=== PATIENT | female | born 1940 | race Caucasian/White ===

== ENCOUNTER 2018-12-29 15:01 | Inpatient (IN) | payer MEDICARE, OTHER ==
[~2018-12-29] VITALS: Ht 165.1 cm; Wt 84.9 kg
[2018-12-29 15:39] LABS: BASOPHILS ABSOLUTE AUTO 0.05 K/mm3 (0.00-0.23); BASOPHILS PERCENT AUTO 0 % (0-2); EOSINOPHILS ABSOLUTE AUTO 0.04 K/mm3 (0.00-0.68); EOSINOPHILS PERCENT AUTO 0 % (0-6); Hematocrit 45.1 % (33.0-51.0); Hemoglobin 15.2 g/dL (11.5-16.0); IMMATURE GRAN ABSOLUTE AUTO 0.18 K/mm3 (0.00-0.10); IMMATURE GRAN PERCENT AUTO 1 % (0-1); LYMPHOCYTES ABSOLUTE AUTO 1.48 K/mm3 (0.84-5.20); LYMPHOCYTES PERCENT AUTO 8 % (21-46); MONOCYTES ABSOLUTE AUTO 0.97 K/mm3 (0.16-1.47); MONOCYTES PERCENT AUTO 6 % (4-13); Mean Corpuscular HGB 30.5 pg (26.0-34.0); Mean Corpuscular HGB Conc 33.7 g/dL (31.5-36.5); Mean Corpuscular Volume 91 fL (80-100); Mean Platelet Volume 10.5 fL (9.1-12.4); NEUTROPHILS PERCENT AUTO 85 % (41-73); Platelet Count 250 K/mm3 (150-400); RDW Coefficient Variation 12.6 % (11.7-14.2); Red Blood Cell Count 4.98 M/mm3 (3.80-5.20); White Blood Cell Count 17.72 K/mm3 (4.00-11.30)
[2018-12-29 15:59] LABS: Alanine Aminotransfer (ALT/SGP 196 U/L (12-78); Albumin, Blood 2.9 g/dL (3.4-5.0); Albumin/Globulin Ratio 0.6 (0.8-1.8); Alk Phos 263 U/L (50-136); Amylase, Blood 326 U/L (25-115); Anion Gap 9 mmol/L (6-16); Aspartate Aminotrans (AST/SGOT 240 U/L (12-37); Blood Urea Nitrogen 16 mg/dL (8-24); Bun/Creatinine Ratio 21.6 (12.0-20.0); CO2, Blood 24 mmol/L (21-32); Calcium, Blood 9.6 mg/dL (8.5-10.1); Chloride, Blood 103 mmol/L (98-108); Creatinine, Blood 0.74 mg/dL (0.40-1.00); Globulin, Blood 4.5 g/dL (2.2-4.0); Glomerular Filtration Rate >60 (60-); Glucose, Blood 149 mg/dL (70-99); Potassium, Blood 3.7 mmol/L (3.5-5.5); Sodium, Blood 136 mmol/L (136-145); Total Protein, Blood 7.4 g/dL (6.4-8.2)
[2018-12-29] MEDS ORDERED: LANS30EC PO (18:32)
[2018-12-29] MEDS ORDERED: NAPR500 PO (21:00)
[2018-12-29] MEDS ORDERED: RED YEAST RICE600 MG PO (21:01)
[2018-12-29] MEDS ORDERED: Zyrtec10 MG PO (21:01)
[2018-12-30 05:06] LABS: BASOPHILS ABSOLUTE AUTO 0.03 K/mm3 (0.00-0.23); BASOPHILS PERCENT AUTO 0 % (0-2); EOSINOPHILS ABSOLUTE AUTO 0.02 K/mm3 (0.00-0.68); EOSINOPHILS PERCENT AUTO 0 % (0-6); Hemoglobin 13.2 g/dL (11.5-16.0); IMMATURE GRAN ABSOLUTE AUTO 0.16 K/mm3 (0.00-0.10); IMMATURE GRAN PERCENT AUTO 2 % (0-1); LYMPHOCYTES ABSOLUTE AUTO 0.41 K/mm3 (0.84-5.20); LYMPHOCYTES PERCENT AUTO 5 % (21-46); MONOCYTES ABSOLUTE AUTO 0.09 K/mm3 (0.16-1.47); MONOCYTES PERCENT AUTO 1 % (4-13); Mean Corpuscular HGB 30.4 pg (26.0-34.0); Mean Corpuscular Volume 92 fL (80-100); Mean Platelet Volume 10.3 fL (9.1-12.4); NEUTROPHILS ABSOLUTE AUTO 7.59 K/mm3 (1.96-9.15); NEUTROPHILS PERCENT AUTO 92 % (41-73); Platelet Count 192 K/mm3 (150-400); RDW Coefficient Variation 12.9 % (11.7-14.2); RDW Standard Deviation 43.6 fL (35.1-46.3); Red Blood Cell Count 4.34 M/mm3 (3.80-5.20)
[2018-12-30 05:27] LABS: BAND PERCENT MAN 24 % (0-8); BASOPHILS PERCENT MAN 0 % (0-2); EOSINOPHILS PERCENT MAN 0 % (0-6); LYMPHOCYTES ABSOLUTE MAN 0.58 K/mm3 (0.84-5.20); LYMPHOCYTES PERCENT MAN 7 % (21-46); METAMYELOCYTE ABSOLUTE MAN 0.16 K/mm3 (0.00-0.00); METAMYELOCYTE PERCENT MAN 2 % (0-0); MONOCYTES ABSOLUTE MAN 0.33 K/mm3 (0.16-1.47); MONOCYTES PERCENT MAN 4 % (4-13); NEUTROPHILS ABSOLUTE MAN 7.22 K/mm3 (1.96-9.15); SEG NEUTROPHILS PERCENT MAN 63 % (41-73); TOTAL CELLS COUNTED 100
[2018-12-30 05:31] LABS: Alanine Aminotransfer (ALT/SGP 156 U/L (12-78); Albumin, Blood 2.4 g/dL (3.4-5.0); Albumin/Globulin Ratio 0.6 (0.8-1.8); Alk Phos 305 U/L (50-136); Anion Gap 7 mmol/L (6-16); Aspartate Aminotrans (AST/SGOT 186 U/L (12-37); Bilirubin, Total 6.4 mg/dL (0.1-1.0); Blood Urea Nitrogen 14 mg/dL (8-24); Bun/Creatinine Ratio 22.5 (12.0-20.0); CO2, Blood 24 mmol/L (21-32); Calcium, Blood 8.5 mg/dL (8.5-10.1); Chloride, Blood 108 mmol/L (98-108); Creatinine, Blood 0.62 mg/dL (0.40-1.00); Globulin, Blood 3.7 g/dL (2.2-4.0); Glomerular Filtration Rate >60 (60-); Glucose, Blood 97 mg/dL (70-99); Potassium, Blood 3.7 mmol/L (3.5-5.5); Sodium, Blood 139 mmol/L (136-145); Total Protein, Blood 6.1 g/dL (6.4-8.2)
--- NOTE | 2018-12-30 18:02 | NUR ---
PATIENT TO DISCHARGE TO [facility] FOR SURGERY . THIS NURSE CALLED AND GAVE REPORT TO [facility] TO TRANSPORT. PT ALERT AND ORIENTED.
== END 2018-12-30 16:38 | disposition short-term general hospital (02) | DRG 871 ==
LOC: ER 15:01 → CT 15:01 → MEDS 21:06
PROVIDERS: Nurse Practitioner Acute Care; ADMIT Internal Medicine
DX: A41.9 Sepsis, unspecified organism (principal); K85.10 Biliary acute pancreatitis without necrosis or infection; K80.42 Calculus of bile duct with acute cholecystitis without obstruction; K21.9 Gastro-esophageal reflux disease without esophagitis; Z87.891 Personal history of nicotine dependence; Z66 Do not resuscitate
CPT/HCPCS: 36415; 74176; 74181; 76705; 80053; 82150; 82947; 83605; 83690; 85025; 93005; 93010; 96361; 96365; 96375; 97161; 97530; 99285-25; J0696; J1170; J2405; J2543; J3010; J7030

== ENCOUNTER → 2021-07-23 | Outpatient (CLI) | payer MEDICARE, OTHER ==
[~2021-07-23] MED LIST: LANS30EC PO; NAPR500 PO; RED YEAST RICE600 MG PO; Zyrtec10 MG PO
== END | disposition home or self-care (01) ==
LOC: LAB SHORT 14:27 → PLD 14:27
DX: C44.319 Basal cell carcinoma of skin of other parts of face (principal)
CPT/HCPCS: 88305

== ENCOUNTER 2024-01-22 10:23 | Inpatient (IN) | payer MEDICARE, OTHER ==
[~2024-01-22] VITALS: Ht 162.6 cm; Wt 49.9 kg
[2024-01-22 10:38] LABS: BASOPHILS ABSOLUTE AUTO 0.02 K/mm3 (0.00-0.23); BASOPHILS PERCENT AUTO 0 % (0-2); EOSINOPHILS ABSOLUTE AUTO 0.01 K/mm3 (0.00-0.68); EOSINOPHILS PERCENT AUTO 0 % (0-6); Hematocrit 41.9 % (33.0-51.0); Hemoglobin 13.4 g/dL (11.5-16.0); IMMATURE GRAN ABSOLUTE AUTO 0.08 K/mm3 (0.00-0.10); IMMATURE GRAN PERCENT AUTO 1 % (0-1); LYMPHOCYTES ABSOLUTE AUTO 1.09 K/mm3 (0.84-5.20); LYMPHOCYTES PERCENT AUTO 8 % (21-46); MONOCYTES ABSOLUTE AUTO 0.76 K/mm3 (0.16-1.47); MONOCYTES PERCENT AUTO 5 % (4-13); Mean Corpuscular HGB 26.9 pg (26.0-34.0); Mean Corpuscular Volume 84 fL (80-100); Mean Platelet Volume 8.8 fL (9.1-12.4); NEUTROPHILS PERCENT AUTO 86 % (41-73); Platelet Count 476 K/mm3 (150-400); RDW Coefficient Variation 14.3 % (11.7-14.2); RDW Standard Deviation 43.8 fL (35.1-46.3); Red Blood Cell Count 4.98 M/mm3 (3.80-5.20); White Blood Cell Count 14.46 K/mm3 (4.00-11.30)
[2024-01-22] MEDS ORDERED: NS 1,000 ML IV SCH (10:40)
[2024-01-22 11:02] LABS: Albumin, Blood 2.2 g/dL (3.4-5.0); Albumin/Globulin Ratio 0.5 (0.8-1.8); Bilirubin, Total 0.9 mg/dL (0.1-1.0); Bun/Creatinine Ratio 43.5 (12.0-20.0); Calcium, Blood 9.5 mg/dL (8.5-10.1); Creatinine, Blood 0.6 mg/dL (0.40-1.00); Globulin, Blood 4.8 g/dL (2.2-4.0); Potassium, Blood 3.6 mmol/L (3.5-5.5)
[2024-01-22] MEDS ORDERED: Diltiazem HCl 5 MG / ML 5ML Vial IV ONE (11:25)
[2024-01-22] MEDS ORDERED: FLU VACC TS2024-25(6MOS UP)/PF 45 MCG/0.5 ML SYRINGE IM SCH (14:55)
[2024-01-22] MEDS ORDERED: Metoprolol Tartrate 1 MG/ML 5 ML VIAL IV PRN (15:00)
[2024-01-22] MEDS ORDERED: Metoprolol Tartrate 1 MG/ML 5 ML VIAL IV ONE (15:00)
[2024-01-22] MEDS ORDERED: NS 1,000 ML IV ONE (15:00)
[2024-01-22] MEDS ORDERED: Digoxin 0.25 MG Tab PO SCH (16:00)
[2024-01-22 17:28] VITALS: BP 106/63
[2024-01-22] MEDS ORDERED: Digoxin 0.25 MG in Dextrose 5% 100 ML IV ONE (19:10)
[2024-01-22 19:41] VITALS: BP 106/62
[2024-01-22] MEDS ORDERED: GuaiFENesin 600 MG TabCR PO SCH (20:00)
--- NOTE | 2024-01-22 20:12 | NUR ---
RESIDENT DR VALENTE CALLED TO CLARIFY ORDER FOR DIGOXIN PLACED ON DAY SHIFT JUST PRIOR TO SHIFT CHANGE. DR VALENTE PLACED ORDER FOR IV DIGOXIN AND REMINDED IV DIGOXIN IS NOT GIVEN ON MEDICAL FLOOR. TELEMETRY CALLED AND PATIENT NOW NSR [address] VALENTE REPORTS TO HOLD IV DIGOXIN AND TO GIVE SCHEDULE PO DIGOXIN 0.25 MG AT 22:00. ALSO IF HR INCREASES DR VALENTE REPORTS MIGHT HAVE TO TRANSFER PATIET TO PCU. WCTM.
[2024-01-23] VITALS (10 sets, daily range): BP systolic 95–142; BP diastolic 43–104
--- NOTE | 2024-01-23 04:08 | NUR ---
SHIFT SUMMARY PATIENT HR AFIB 87-120 PER TELE MONITOR. AXOX 3 AND BEDREST. DENIES CHEST PAIN, SOB, AND N/V. AFEBRILE. PIV INTACT. PUREWICK IN PLACE. WOUND PHOTO TAKEN ON BUTTOCK AND CONSENT TO PHOTOGRAPH SIGNED AND IN CHART. PATIENT SLEPT MOST OF THE SHIFT. COOPERATIVE WITH CARE. CALL LIGHT IN REACH. BED IN LOWEST POSITION. WILL CONTINUE TO MONITOR UNTIL DAY SHIFT NURSE ASSUMES CARE.
[2024-01-23 05:12] LABS: Source, Urine Straight Cath
[2024-01-23 05:15] LABS: Appearance, Urine Cloudy (Clear); Bilirubin, Urine Neg (Neg); Blood, Urine 4+ (Neg); Color, Urine Amber (P-Yellow); Glucose Qualitative, Urine Neg (Neg); Ketones, Urine 1+ (Neg); Leukocyte Esterase, Urine 3+ (Neg); Nitrite, Urine Pos (Neg); Protein, Urine 2+ (Neg); Urobilinogen, Urine 2+ (Normal)
[2024-01-23 05:29] LABS: Bacteria Many /hpf; Squamous Epithelial Cells Mod /hpf (Few); White Blood Cells, Urine 25-50 /hpf (0-5)
[2024-01-23 05:31] LABS: Amorphous Heavy (0-Heavy)
[2024-01-23 05:32] LABS: Transitional Epithelial Cells Rare /hpf (0-Rare); Yeast/Fungi Urine Rare /hpf
--- NOTE | 2024-01-23 06:47 | NUR ---
[facility] GENER[facility] REPORTS SVT 150 AND BACK DOWN TO 120. NOW AFIB 94-105. TM.
[2024-01-23 07:44] LABS: BASOPHILS ABSOLUTE AUTO 0.02 K/mm3 (0.00-0.23); BASOPHILS PERCENT AUTO 0 % (0-2); EOSINOPHILS ABSOLUTE AUTO 0.02 K/mm3 (0.00-0.68); EOSINOPHILS PERCENT AUTO 0 % (0-6); Hematocrit 35.7 % (33.0-51.0); Hemoglobin 11.1 g/dL (11.5-16.0); IMMATURE GRAN ABSOLUTE AUTO 0.11 K/mm3 (0.00-0.10); IMMATURE GRAN PERCENT AUTO 1 % (0-1); LYMPHOCYTES ABSOLUTE AUTO 1.23 K/mm3 (0.84-5.20); LYMPHOCYTES PERCENT AUTO 9 % (21-46); MONOCYTES ABSOLUTE AUTO 0.82 K/mm3 (0.16-1.47); MONOCYTES PERCENT AUTO 6 % (4-13); Mean Corpuscular HGB 26.6 pg (26.0-34.0); Mean Corpuscular HGB Conc 31.1 g/dL (31.5-36.5); Mean Corpuscular Volume 85 fL (80-100); Mean Platelet Volume 9.3 fL (9.1-12.4); NEUTROPHILS ABSOLUTE AUTO 11.54 K/mm3 (1.96-9.15); NEUTROPHILS PERCENT AUTO 84 % (41-73); Platelet Count 421 K/mm3 (150-400); RDW Coefficient Variation 14.3 % (11.7-14.2); RDW Standard Deviation 44.3 fL (35.1-46.3); Red Blood Cell Count 4.18 M/mm3 (3.80-5.20); White Blood Cell Count 13.74 K/mm3 (4.00-11.30)
[2024-01-23 08:02] LABS: Bun/Creatinine Ratio 30.3 (12.0-20.0); Calcium, Blood 8.7 mg/dL (8.5-10.1); Creatinine, Blood 0.5 mg/dL (0.40-1.00)
[2024-01-23] MEDS ORDERED: Enoxaparin 40 MG/0.4 ML SYR SC SCH (09:00)
[2024-01-23] MEDS ORDERED: NS 1,000 ML IV SCH (09:25)
[2024-01-23] MEDS ORDERED: Potassium Chloride 10 Meq Tablet SA PO SCH (09:30)
[2024-01-23] MEDS ORDERED: NS 250 ML IV PRN (10:00)
[2024-01-23] MEDS ORDERED: CefTRIAXone Sodium 1,000 MG in NS 100 ML IV SCH (10:00)
[2024-01-23] MEDS ORDERED: Lactobacil 2-S.Thermo-Bifido 1 1 Cap PO SCH (10:00)
[2024-01-23] MEDS ORDERED: Digoxin 0.25 MG Tab PO SCH (11:00)
[2024-01-23 11:01] LABS: Digoxin (Lanoxin) 1.09 ug/mL (0.80-2.00)
[2024-01-23] MEDS ORDERED: Digoxin 0.25 MG Tab PO ONE (11:25)
--- NOTE | 2024-01-23 14:23 | NUR ---
DR PEREZ CONTACTED LEFT A MESSAGE LETTING HIM KNOWN, PATIENTS SONS AND GRANDSON HERE AT BEDSIDE. PALLIATIVE CARE NURSE CHELITA ROUNDED ON PATIENT WITH FAMILY AT BEDSIDE
--- NOTE | 2024-01-23 16:03 | NUR ---
PATIENT TRANSFERRED TO PCU FOR AMIODAROME GTT, DR PEREZ AND PALLIATIVE CARE RN MEET WITH TWO SONS, GRANDSONS, AND PATIENT. POSSIBLE COMFORT CARE/HOSPICE TOMORROW. HEART RATE STILL 120S, PATIENT ASYMPTOMATICS OF HEART RATE OR UTI, PERIWIK IN PLACE, REPORT GIVEN TO FOOD PRODUCTION MACHINE OPERATOR
--- NOTE | 2024-01-23 18:10 | NUR ---
TRANSFER NOTE/SHIFT SUMMARY PT A&OX4. SP02>90% ON RA. TELEMETRY SHOWS AFIB, HR MOSTLY 120'S. PT DENIES CP. AMIODERONE BOLUS AND GTT INFUSED/INFUSING PER EMAR. DENIES PAIN. PURWIK TO SUCTION, NEW PURWIK PLACED UPON TRANSFER. ATTENDS CHANGE PT HAD ONE LOOSE BROWN BM. BED BATH GIVEN, LINEN/GOWN CHANGE. PT FLOATED ON PILLOWS. SON IN ROOM. PT AND SON ORIENTED TO PCU/CALL LIGHT. CALL LIGHT IN REACH.
--- NOTE | 2024-01-23 21:32 | NUR ---
PT EXPRESSES DESIRE TO NOT BE WOKEN UP. RN EXPLAINED THE UNIT POLICY OF VITALS EVERY FOUR HOURS. SHE IS A/OX4 AND IS DECLINING VITALS FOR THE REMAINDER OF THE SHIFT. PM MEDS ALSO REFUSED. RN NOTIFIED RESIDENT.
--- NOTE | 2024-01-23 21:45 | NUR ---
PT DECLINING CARE, NOT TO ENTER ROOM PER PATIENT REQUEST. SPOKE WITH RN AND WAS ADVISED TO STAY OUT OF ROOM.
[2024-01-24 05:02] LABS: BASOPHILS ABSOLUTE AUTO 0.01 K/mm3 (0.00-0.23); BASOPHILS PERCENT AUTO 0 % (0-2); EOSINOPHILS ABSOLUTE AUTO 0.02 K/mm3 (0.00-0.68); EOSINOPHILS PERCENT AUTO 0 % (0-6); Hematocrit 33.5 % (33.0-51.0); Hemoglobin 10.5 g/dL (11.5-16.0); IMMATURE GRAN ABSOLUTE AUTO 0.11 K/mm3 (0.00-0.10); IMMATURE GRAN PERCENT AUTO 1 % (0-1); LYMPHOCYTES ABSOLUTE AUTO 1.45 K/mm3 (0.84-5.20); LYMPHOCYTES PERCENT AUTO 10 % (21-46); MONOCYTES ABSOLUTE AUTO 0.88 K/mm3 (0.16-1.47); MONOCYTES PERCENT AUTO 6 % (4-13); Mean Corpuscular HGB 26.5 pg (26.0-34.0); Mean Corpuscular HGB Conc 31.3 g/dL (31.5-36.5); Mean Corpuscular Volume 85 fL (80-100); Mean Platelet Volume 9.1 fL (9.1-12.4); NEUTROPHILS ABSOLUTE AUTO 11.51 K/mm3 (1.96-9.15); NEUTROPHILS PERCENT AUTO 82 % (41-73); Platelet Count 421 K/mm3 (150-400); RDW Coefficient Variation 14.5 % (11.7-14.2); RDW Standard Deviation 44.4 fL (35.1-46.3); Red Blood Cell Count 3.96 M/mm3 (3.80-5.20); White Blood Cell Count 13.98 K/mm3 (4.00-11.30)
[2024-01-24 05:43] LABS: Albumin, Blood 1.8 g/dL (3.4-5.0); Albumin/Globulin Ratio 0.5 (0.8-1.8); Bilirubin, Total 0.7 mg/dL (0.1-1.0); Bun/Creatinine Ratio 23.9 (12.0-20.0); Calcium, Blood 8.5 mg/dL (8.5-10.1); Creatinine, Blood 0.54 mg/dL (0.40-1.00); Globulin, Blood 3.6 g/dL (2.2-4.0); Potassium, Blood 3.7 mmol/L (3.5-5.5); Total Protein, Blood 5.4 g/dL (6.4-8.2)
--- NOTE | 2024-01-24 06:21 | NUR ---
SHIFT SUMMARY PT REFUSED MIDNIGHT AND 0400 VITALS ALONG WITH PM MEDS. PT REQUESTED TO MINIMIZE SLEEP INTERUPTIONS AND EXPRESSES WISHES TO GO HOME. NEURO: A/OX4. PERRLA. EQUAL STRENGTH WITH GENERALIZED WEAKNESS. CARDIAC: AMIO GTT RUNNING. AFIB. PULSES PRESENT THROUGHOUT LUNGS: DIMINISHED , ON RA GI/: SOFT BM THIS SHIFT. TEA COLORED URINE. SKIN: NEW MEPILEX PLACED TO COCCYX
[2024-01-24 07:43] VITALS: BP 104/56
[2024-01-24] MEDS ORDERED: NS 1,000 ML IV SCH (08:45)
--- NOTE | 2024-01-24 09:26 | NUR ---
"Spiritual Care Visit | Pt. Referral Pt. is awake in bed and quickly denies requesting spiritual care. Listen with a calming presence and verbalized care and kindness for all Pt. Pt. displayed evidence of acknowedging basic care and support. Pt. verbalized gratitude for the spiritual care attempt."
[2024-01-24 13:25] VITALS: BP 123/65
[2024-01-24] MEDS ORDERED: AMIODARONE HCL400 M2 PO (15:03)
[2024-01-24] MEDS ORDERED: AMIODARONE HCL100 M3 PO (15:05)
[2024-01-24] MEDS ORDERED: CEFD300 PO (15:07)
[2024-01-24] MEDS ORDERED: PROBIOTIC1 EA13 PO (15:09)
[2024-01-24] MEDS ORDERED: MIRTAZAPINE7.5 M1 PO (15:12)
[2024-01-24 15:27] VITALS: BP 127/78
--- NOTE | 2024-01-24 15:35 | NUR ---
REFERRAL RCV'D FOR GOALS OF CARE REVIEW WITH PATIENT. PER CHARGE NURSE, PT WILL BE DISCHARGING WITH HOME HEALTH. MEET AND GREAT WITH PT THIS MORNING. NO GOALS OF CARE CONVERSATION NEEDED/WANTED AT THIS TIME. PC TO REMAIN AVAILABLE NEEDED.
--- NOTE | 2024-01-24 17:33 | NUR ---
DISCHARG SUMMARY PT A&O X4, ABLE TO MAKE NEEDS KNOWN AND OBEY COMMANDS, DID REFUSE SOME Q2 TURNS/BED BATH/ ORAL CARE, ABLE TO MOVE ALL EXTREMITIES AND WAS ABLE TO STAND PIVOT WITH STAFF. LUNGS CLEAR AND DIMINISHED T/O, CONTINOUS SPO2 WITH SPO2 GREATER THAN 95%. HEART RATE 90'S IN SINUS RHYTHM, DENIED CHEST P/P, BP STABLE WITH MAP GREATER THAN 65. PT HAD INCONTINENT BM THIS SHIFT. PUREWICK WAS CONNECTED UNTILL DISCHARG, TEA COLORED URINE. PT DID NOT ENGAGE WITH THIS RN DURING DISCHARG TEACHING, PT GRANDSON AT BEDSIDE ASKED QUESTIONS. PT AND FAMILY EDUCATED ON FOLLOW UP APPOINTMENTS, NEW/CHANGES IN MEDICATIONS WELL INSTUCTIONS FOR MEDICATIONS, EDUCATED ON A-FIB,AND UTI. PT DID NOT LOOK AT THIS RN T/O DISCHARGE TEACHING BUT GRANDSON EXPRESSED UNDERSTANDING. IV'S AND TELLE REMOVED. PT WHEELED OUT BY THIS RN.
== END 2024-01-24 16:42 | disposition home health service (06) | DRG 872 ==
LOC: ER 10:23 → MEDS 14:52 → PCU 01-23 15:50
PROVIDERS: Emergency Medicine; ADMIT Family Medicine
DX: A41.9 Sepsis, unspecified organism (principal); E87.1 Hypo-osmolality and hyponatremia; N39.0 Urinary tract infection, site not specified; I48.91 Unspecified atrial fibrillation; L89.151 Pressure ulcer of sacral region, stage 1; E86.0 Dehydration; Z66 Do not resuscitate; K21.9 Gastro-esophageal reflux disease without esophagitis; Z87.891 Personal history of nicotine dependence; Z79.899 Other long term (current) drug therapy; R91.8 Other nonspecific abnormal finding of lung field; E87.6 Hypokalemia; R54 Age-related physical debility; Z90.710 Acquired absence of both cervix and uterus; Z98.890 Other specified postprocedural states
CPT/HCPCS: 36415; 51798; 71045; 71260; 80048; 80053; 80162; 81001; 82947; 83605; 83735; 83880; 84484; 85025; 87077; 87086; 87186; 93005; 93010; 96361; 96374; 99285-25; A9270; J0282; J0696; J1650; J7030; J7050; J7060; Q9967

== ENCOUNTER 2024-02-10 08:03 | Emergency (ER) | payer MEDICARE, OTHER ==
[~2024-02-10] VITALS: Ht 152.4 cm; Wt 44.5 kg
[~2024-02-10 08:03] MED LIST changes: +AMIODARONE HCL100 M3 PO; +AMIODARONE HCL400 M2 PO; +CEFD300 PO; +MIRTAZAPINE7.5 M1 PO; +PROBIOTIC1 EA13 PO
[2024-02-10 08:45] LABS: BASOPHILS ABSOLUTE AUTO 0.04 K/mm3 (0.00-0.23); BASOPHILS PERCENT AUTO 0 % (0-2); EOSINOPHILS ABSOLUTE AUTO 0.01 K/mm3 (0.00-0.68); EOSINOPHILS PERCENT AUTO 0 % (0-6); Hematocrit 32.4 % (33.0-51.0); Hemoglobin 10.5 g/dL (11.5-16.0); IMMATURE GRAN ABSOLUTE AUTO 0.09 K/mm3 (0.00-0.10); IMMATURE GRAN PERCENT AUTO 1 % (0-1); LYMPHOCYTES ABSOLUTE AUTO 0.85 K/mm3 (0.84-5.20); LYMPHOCYTES PERCENT AUTO 10 % (21-46); MONOCYTES ABSOLUTE AUTO 0.35 K/mm3 (0.16-1.47); MONOCYTES PERCENT AUTO 4 % (4-13); Mean Corpuscular HGB 26.5 pg (26.0-34.0); Mean Corpuscular HGB Conc 32.4 g/dL (31.5-36.5); Mean Corpuscular Volume 82 fL (80-100); Mean Platelet Volume 8.6 fL (9.1-12.4); NEUTROPHILS ABSOLUTE AUTO 7.64 K/mm3 (1.96-9.15); NEUTROPHILS PERCENT AUTO 85 % (41-73); Platelet Count 133 K/mm3 (150-400); RDW Coefficient Variation 16.6 % (11.7-14.2); RDW Standard Deviation 48.5 fL (35.1-46.3); Red Blood Cell Count 3.96 M/mm3 (3.80-5.20); White Blood Cell Count 8.98 K/mm3 (4.00-11.30)
[2024-02-10 09:29] LABS: Albumin, Blood 1.7 g/dL (3.4-5.0); Albumin/Globulin Ratio 0.5 (0.8-1.8); Bilirubin, Total 2.4 mg/dL (0.1-1.0); Bun/Creatinine Ratio 64.9 (12.0-20.0); Creatinine, Blood 0.48 mg/dL (0.40-1.00); Globulin, Blood 3.7 g/dL (2.2-4.0); Potassium, Blood 3.5 mmol/L (3.5-5.5); Total Protein, Blood 5.4 g/dL (6.4-8.2)
[2024-02-10] MEDS ORDERED: Lactulose 200 GM/300 ML Enema 300ML BTL PR ONE (10:05)
[2024-02-10] MEDS ORDERED: Morphine Sulfate 4 MG/1 ML Injection IV ONE (10:20)
[2024-02-10] MEDS ORDERED: Water 500ML With 1 PKT Castile Soap Enema PR ONE (12:30)
[2024-02-10] MEDS ORDERED: FentaNYL Citrate 50 MCG/ML 2 ML Injection IV ONE (13:25)
[2024-02-10] MEDS ORDERED: Lidocaine 2% Jelly Uro-Jet TOP ONE (13:25)
[2024-02-10] MEDS ORDERED: Ondansetron HCl 2 MG / ML 2ML Vial IV PRN (13:35)
[2024-02-10] MEDS ORDERED: Sod Phosphate/Sod Biphosphate 132 ML BTL PR ONE (14:55)
[2024-02-10 16:45] VITALS: BP 97/56
== END 2024-02-10 16:50 | disposition home or self-care (01) ==
LOC: ER 08:03
PROVIDERS: Emergency Medicine
DX: K56.41 Fecal impaction (principal); Z51.5 Encounter for palliative care; K21.9 Gastro-esophageal reflux disease without esophagitis; Z79.899 Other long term (current) drug therapy
CPT/HCPCS: 74177; 80053; 83690; 85025; 96374-59; 96375; 99285-25; A9270; J2270; J3010; Q9967